=== PATIENT | male | born 1960 | race Caucasian/White ===

== ENCOUNTER 2018-08-26 20:44 | Inpatient (IN) | payer OTHER ==
[~2018-08-26] VITALS: Ht 170.2 cm; Wt 68.0 kg
[2018-08-26 20:45] VITALS: BP 90/51
--- NOTE | 2018-08-26 20:45 | NUR ---
PT BIBA TO ER WITH C/O GENERALIZED WEAKNESS. [facility] PT STATED HE WAS AT A LIBERTARIAN SITTING DOWN AND FELT LIGHT HEADED. FAMILY STATED PER [facility] THAT PT WAS COUGHING UP BLOOD X 3. PT HAS BLOOD ON SHIRT AND PANTS. PT DOES NOT REMEMBER VOMITING UP BLOOD. PT DENIES NAUSEA AT THIS TIME. PT IS SHAKING DUE TO HX OF TREMORS, PALE/GREYISH TONE SKIN, ABDOMEN DISTENDED. PER [facility], FAMILY STATED HE HAS HX OF ASCITES. PT HAD A PARACENTESIS APPROX. ONE MONTH AGO. PT IS A/OX4. PT KNOWS WHERE IS HE IS AND HAS KNOWLEDGE OF DATE AND TIME. PT IS PERSIAN SPEAKING, BUT UNDERSTANDS SOME LUX[place]BOURGISH. PER [facility], FAMILY STATED HE HAS BEEN HAVING LOW BP. PRIOR TO ER, 74/46. [facility] STARTED IV RIGHT AC 28 GAUGE AND GAVE 500 ML BOLUS OF NS. PT HAD BANDING DONE TO HIS ESOPHOGEAL VARICES IN JUNE. ER MD MADE AWARE OF STATUS. SAFETY MEASURES UN PLACE, BED RAILS UP X 2. CONTINUE TO MONITOR. PT STATED NO PAIN AT THIS TIME ALLERGIES TO PENICILLIN BLOOD SUAR WAS TAKEN AND WAS 210. MEDICAL HX: HTN, ESOPHAGEAL VARICES, SURGERY AND BANDED, DM, ASCITES, CIRRHOSIS OF LIVER, STOPPED DRINKING ALCOHOL X 2 MONTHS AGO.
--- NOTE | 2018-08-26 20:47 | NUR ---
DR. JOHNSON EVALUATING PT BEDSIDE
--- NOTE | 2018-08-26 20:50 | NUR ---
AT PT BEDSIDE.
[2018-08-26] MEDS ORDERED: GLIP10TA3 PO (20:56)
[2018-08-26] MEDS ORDERED: ASPI-1718 PO (20:56)
[2018-08-26] MEDS ORDERED: FURO-570 PO (20:56)
[2018-08-26] MEDS ORDERED: METF1000 PO (20:56)
--- NOTE | 2018-08-26 20:57 | NUR ---
PT PATIENT'S , PT TAKING AMLODIPINE, UNKNOWN DOSE. PT WAS INSTRUCTED BY PMD TO DISCONTINUE USE OF MEDICATION AND HAS NOT BEEN TAKING IT FOR THE PAST TWO WEEKS PER FAMILY.
[2018-08-26] MEDS ORDERED: NACL 0.9% 1,000 ML IV SCH (21:01)
[2018-08-26] MEDS ORDERED: OCTREOTIDE ACETATE 1.25 MG in NACL 0.9% 250 ML IV SCH (21:05)
[2018-08-26 21:19] LABS: BASOPHILS % (AUTO) 0.6 % (0.0-2.0); EOSINOPHILS # (AUTO) 0.1 K/uL (0-0.4); EOSINOPHILS % (AUTO) 1.6 % (0.0-4.0); LYMPHOCYTES # (AUTO) 1.8 K/uL (2.0-11.5); LYMPHOCYTES % (AUTO) 25.7 % (20.5-51.1); MEAN CORPUSCULAR HEMOGLOBIN 33 pg (27-31); MEAN CORPUSCULAR HGB CONC 34 g/dL (33-37); MEAN CORPUSCULAR VOLUME 96.9 fL (80-94); MONOCYTES # (AUTO) 0.5 K/uL (0.8-1.0); MONOCYTES % (AUTO) 7.3 % (1.7-9.3); NEUTROPHILS # (AUTO) 4.5 K/uL (1.8-7.7); NEUTROPHILS % (AUTO) 64.8 % (42.2-75.2); PLATELET COUNT (AUTO) 82 K/uL (140-450); RED BLOOD CELL COUNT(AUTO) 2.04 MIL/uL (4.20-6.10); RED CELL DISTRIBUTION WIDTH 16.8 % (11.6-13.7); WHITE BLOOD COUNT (AUTO) 6.9 K/uL (4.8-10.8)
[2018-08-26 21:23] LABS: HEMOGLOBIN 6.8 g/dL (12.0-18.0)
[2018-08-26 21:24] LABS: HEMATOCRIT 19.8 % (36-52)
[2018-08-26] MEDS ORDERED: OCTREOTIDE ACETATE 1000 MCG/5 ML VIAL ONE (21:25)
[2018-08-26 21:29] LABS: CARBON DIOXIDE 20.8 mmol/L (21-32); POTASSIUM 3.8 mmol/L (3.5-5.1)
[2018-08-26 21:35] LABS: ALBUMIN 2.2 g/dL (3.4-5.0); TOTAL BILIRUBIN 1.2 mg/dL (0.0-1.0)
--- NOTE | 2018-08-26 21:35 | NUR ---
LAB CALLED AND GAVE REPORT ON CRITICAL LAB FINDING. HH IS 6.8 AND HEMATOCRIT IS 19.8. NAHUN LEYVA MADE AWARE
[2018-08-26] MEDS ORDERED: ASCO500T45 GT (21:51)
[2018-08-26] MEDS ORDERED: HYDR100T79 GT (21:54)
[2018-08-26] MEDS ORDERED: OXYC5TAB4 GT (21:54)
[2018-08-26] MEDS ORDERED: ACET-8386 GT (21:54)
[2018-08-26] MEDS ORDERED: ONDA4TAB GT (21:54)
[2018-08-26] MEDS ORDERED: ACET-2619 GT (21:54)
--- NOTE | 2018-08-26 22:05 | NUR ---
BLOOD BANK CALLED AND STATED THE BLOOD IS READY. NAHUN LEYVA MADE AWARE
--- NOTE | 2018-08-26 22:05 | NUR ---
PT UNDERSTOOD AND SIGNED THE CONSENT FORM TO RECIEVE BLOOD. ER MADE AWARE. AT BEDSIDE.
[2018-08-26] MEDS ORDERED: ONDANSETRON 4 MG/2 ML VIAL IVP ONE (22:25)
--- NOTE | 2018-08-26 22:25 | NUR ---
PT WAS FEELING NAUSEOUS, ER MD MADE AWARE AND STATED WILL ORDER MEDICATION.
[2018-08-26 22:40] VITALS: BP 90/52
--- NOTE | 2018-08-26 22:40 | NUR ---
PT ARRIVED VIA GURNEY TO UNIT. WITH LITTLE ASSISTANCE PT WAS ABLE TO HELP TRANSFER TO BED. AOX4- WELSH SPEAKING, ON ROOM AIR WITH IV SITES: LEFT AC #20G, RIGHT AC #18G. DISCUSSED PLAN OF CARE AND PT VERBALIZED UNDERSTANDING. NO S/S OF RESPIRATORY DISTRESS OR DISCOMFORT NOTED AT THIS TIME. VITAL SIGNS TAKEN AND TOLERATED WELL- LOW BP NOTED. MRSA NARES COLLECTED. BED IN LOWEST POSITION, BED BREAKS ON, AND BOTH SIDE RAILS UP. BEDSIDE TABLE AND CALL LIGHT ARE WITHIN REACH. WILL CONTINUE TO MONITOR.
[2018-08-26 22:56] LABS: APPEARANCE,URINE CLEAR (CLEAR); BILIRUBIN,URINE NEGATIVE (NEGATIVE); BLOOD, URINE NEGATIVE (NEGATIVE); COLOR,URINE YELLOW (YELLOW); LEUKOCYTE ESTERASE ,URINE NEGATIVE (NEGATIVE); NITRITE, URINE NEGATIVE (NEGATIVE); UGLUCOSE TRACE (NEGATIVE)
--- NOTE | 2018-08-26 23:08 | NUR ---
PT WAS ADMITTED TO [facility], ADMITTING DR. IBARRA. REPORT WAS GIVEN TO KEREN MARQUEZ. PT WAS [place]SFERRED [place] WITH RN AND EMT. PT TOLERATED WELL. PT WAS STILL FEELING NAUSEOUS, AND THAT BLOOD WAS READY FOR ASSEMBLY HAND , ENDORSED TO ALMA VELIZ. VITAL SIGNS STABLE. AT BEDSIDE.
[2018-08-26 23:11] LABS: HYALINE CASTS, URINE 0-10 /LPF (None Seen); RBC,URINE 0-5 /HPF (0-5); WBC,URINE 0-5 /HPF (0-5)
[2018-08-26] MEDS ORDERED: ACETAMINOPHEN 325 MG TAB PO PRN (23:30)
[2018-08-26] MEDS ORDERED: ONDANSETRON 4 MG/2 ML VIAL IVP PRN (23:30)
--- NOTE | 2018-08-27 | NUR ---
SPOKE WITH DR. HERNADEZ AND WAS GIVEN ORDERS FOR ZOFRAN, TYLENOL, PROTONIX DRIP AND 2 UNITS OF RBC TO BE INFUSED ALONG WITH NPO EXCEPT MEDS. IV FLUIDS TO BE D5% NS @65ML/HR. NO S/S OF RESPIRATORY DISTRESS OR DISCOMFORT NOTED AT THIS TIME. WILL CONTINUE TO MONITOR.
[2018-08-27] MEDS ORDERED: PANTOPRAZOLE 40 MG INJ VIAL ONE (00:15)
[2018-08-27] MEDS: PANTOPRAZOLE 80 MG in NACL 0.9% 100 ML IV SCH ×2 (00:30→10:10)
--- NOTE | 2018-08-27 00:30 | NUR ---
PROTONIX DRIP STARTED. PT TOLERATED WELL. NO S/S OF RESPIRATORY DISTRESS OR DISCOMFORT NOTED AT THIS TIME. WILL CONTINUE TO MONITOR.
--- NOTE | 2018-08-27 01:00 | NUR ---
FIRST BAG OF RBC HAS STARTED TO INFUSE. PT TOLERATING WELL. NO S/S OF RESPIRATORY DISTRESS OR DISCOMFORT NOTED AT THIS TIME. WILL CONTINUE TO MONITOR.
--- NOTE | 2018-08-27 03:00 | NUR ---
RBC'S CONTINUE TO INFUSE. PT TOLERATING WELL. NO S/S OF RESPIRATORY DISTRESS OR DISCOMFORT NOTED AT THIS TIME. WILL CONTINUE TO MONITOR.
--- NOTE | 2018-08-27 03:45 | NUR ---
FIRST BAG OF RBC HAS COMPLETED. PT TOLERATED WELL. NO S/S OF RESPIRATORY DISTRESS OR DISCOMFORT NOTED AT THIS TIME. WILL CONTINUE TO MONITOR.
--- NOTE | 2018-08-27 04:37 | NUR ---
SECOND BAG OF RBC STARTED TO INFUSE. PT TOLERATING WELL. NO S/S OF RESPIRATORY DISTRESS OR DISCOMFORT NOTED AT THIS TIME. WILL CONTINUE TO MONITOR.
--- NOTE | 2018-08-27 06:00 | NUR ---
BLOOD GLUCOSE 226- WILL ADMINISTER INSULIN COVERAGE. NO S/S OF RESPIRATORY DISTRESS OR DISCOMFORT NOTED AT THIS TIME. WILL CONTINUE TO MONITOR.
[2018-08-27] MEDS ORDERED: DEXTROSE 50% 50 ML SYR IVP PRN ×2 (06:05→09:40)
[2018-08-27] MEDS: BLOOD GLUCOSE MONITORING 1 DEV DEV FS SCH ×4 (06:41→20:11)
[2018-08-27] MEDS: INSULIN LISPRO SLIDING SCALE 100 UNITS/ML VIAL SUBQ PRN ×4 (06:45→20:27)
--- NOTE | 2018-08-27 06:45 | NUR ---
INSULIN COVERAGE GIVEN AND TOLERATED WELL. NO S/S OF RESPIRATORY DISTRESS OR DISCOMFORT NOTED AT THIS TIME. WILL CONTINUE TO MONITOR.
--- NOTE | 2018-08-27 07:20 | NUR ---
SECOND BAG OF RBC'S HAS COMPLETED. PT TOLERATED WELL. NO S/S OF RESPIRATORY DISTRESS OR DISCOMFORT NOTED AT THIS TIME. WILL CONTINUE TO MONITOR.
--- NOTE | 2018-08-27 07:29 | NUR ---
ENDORSED PT CARE TO DAY SHIFT NURSE LASHON-RN FOR CONTINUITY OF CARE.
--- NOTE | 2018-08-27 07:30 | NUR ---
REPORT RECEIVED FROM EXPLOSIVE MAN NURSE AT BEDSIDE FOR CONTINUITY OF CARE. PATIENT AWAKE AND ALERT, MONGOLIAN SPEAKING ONLY. PER PM SHIFT RN, 2ND BAG OF BLOOD FINISHED AT 0720, STENCILER ALFREDA PUT IN NEW LAB ORDERS. PATIENT DENIES PAIN OR VOMITING. PATIENT HAS INTERMITTENT NON PRODUCTIVE COUGH. RESPIRATIONS EVEN AND UNLABORED ON ROOM AIR, LUNGS CLEAR. PATIENT HAS 3 IV SITES, LAC 20G, PATENT, INTACT, AND ASYMPTOMATIC, SALINE LOCKED. RAC 18G PATENT, INFUSING SANDOSTATIN WELL. LH 22G PATENT, INFUSING PROTONIX WELL. UPDATED PLAN OF CARE WITH PATIENT, HE VERBALIZED UNDERSTANDING. UPDATED BOARD. SAFETY PRECAUTIONS IN PLACE, CALL LIGHT WITHIN REACH, WILL CONTINUE TO MONITOR PATIENT.
[2018-08-27] MEDS: DEXT 5% /NACL 0.9% 1,000 ML IV SCH ×2 (07:45→15:29)
[2018-08-27 08:00] VITALS: BP 98/69
--- NOTE | 2018-08-27 08:30 | NUR ---
PATIENT VOMITED 100 CC OF DARK BLOOD. ZOFRAN IVP PRN GIVEN TO PATIENT. HE TOLERATED IT. NO COMPLAINTS AT THIS TIME. SAFETY PRECAUTIONS IN PLACE, CALL LIGHT WITHIN REACH, WILL CONTINUE TO MONITOR PATIENT.
--- NOTE | 2018-08-27 09:21 | NUR ---
PATIENT VOMITED 100 CC OF DARK BLOOD. AT BEDSIDE. UPDATED PLAN OF CARE TO HER AND PATIENT'S STATUS, SHE VERBALIZED UNDERSTANDING. PAGED DR. IBARRA. DR. NORMAN CASH SHORTAGE INVESTIGATOR. WILL WAIT FOR HIS CALL BACK.
[2018-08-27] MEDS ORDERED: METOCLOPRAMIDE 10 MG/2 ML INJ VIAL IVP PRN (09:40)
[2018-08-27] MEDS ORDERED: INSULIN LISPRO SLIDING SCALE 100 UNITS/ML VIAL SUBQ PRN (09:40)
--- NOTE | 2018-08-27 09:42 | NUR ---
DR IBARRA IN TO SEE THE PATIENT. AT BEDSIDE. WILL WAIT FOR HIS ORDERS.
[2018-08-27 09:46] LABS: BASOPHILS % (AUTO) 0.3 % (0.0-2.0); EOSINOPHILS % (AUTO) 0.3 % (0.0-4.0); HEMATOCRIT 26.2 % (36-52); HEMOGLOBIN 9.2 g/dL (12.0-18.0); LYMPHOCYTES # (AUTO) 1.2 K/uL (2.0-11.5); MEAN CORPUSCULAR HEMOGLOBIN 33 pg (27-31); MEAN CORPUSCULAR HGB CONC 35 g/dL (33-37); MEAN CORPUSCULAR VOLUME 92.5 fL (80-94); MONOCYTES # (AUTO) 0.7 K/uL (0.8-1.0); MONOCYTES % (AUTO) 8.1 % (1.7-9.3); NEUTROPHILS # (AUTO) 7.1 K/uL (1.8-7.7); NEUTROPHILS % (AUTO) 78.3 % (42.2-75.2); PLATELET COUNT (AUTO) 78 K/uL (140-450); RED BLOOD CELL COUNT(AUTO) 2.83 MIL/uL (4.20-6.10); RED CELL DISTRIBUTION WIDTH 16.7 % (11.6-13.7); WHITE BLOOD COUNT (AUTO) 9.1 K/uL (4.8-10.8)
[2018-08-27 10:02] LABS: PROTHROMBIN TIME 12.7 secs (10.8-13.4)
--- NOTE | 2018-08-27 10:20 | NUR ---
CALLED BLOOD BANK ABOUT DR. IBARRA'S ORDER OF PLATELETS. THEY STATED THAT IT WILL BE COMING FROM [facility], WILL TAKE 2-3 HOURS TO ARRIVE AT HOSPITAL. TURN SUPERVISOR AWARE, FAMILY AT BEDSIDE AWARE. WILL CONTINUE TO MONITOR PATIENT.
--- NOTE | 2018-08-27 10:55 | NUR ---
ORDERED SCDS PLACED ON PATIENT AFTER EDUCATION ABOUT INDICATION TO FAMILY AND PATIENT. THEY VERBALIZED UNDERSTANDING. PATIENT NOW RESTING IN BED, NO COMPLAINTS AT THIS TIME, PATIENT DENIES PAIN. NO VOMITING AT THIS TIME. WILL CONTINUE TO MONITOR PATIENT.
[2018-08-27] MEDS ORDERED: BLOOD GLUCOSE MONITORING 1 DEV DEV FS SCH (11:30)
--- NOTE | 2018-08-27 12:15 | NUR ---
BLOOD SUGAR 200, INSULIN COVERAGE GIVEN. PATIENT TOLERATING IT WELL. FAMILY AT BEDSIDE. NO COMPLAINTS AT THIS TIME, PATIENT DENIES PAIN. PATIENT DOES NOT FEEL NAUSEAS, PATIENT COUGHING INTERMITTENTLY. SAFETY PRECAUTIONS IN PLACE, CALL LIGHT WITHIN REACH, WILL CONTINUE TO MONITOR PATIENT.
--- NOTE | 2018-08-27 13:15 | NUR ---
1 UNIT OF PLATELETS STARTED. VS WNL. PATIENT DENIES PAIN, NAUSEA AT THE MOMENT. WILL CONTINUE TO MONITOR PATIENT. Addendum: 08/27/18 at 1857 by Morgan Douglas RN INCORRECT TIME. CORRECT TIME 1345.
[2018-08-27] MEDS ORDERED: OCTREOTIDE ACETATE 1.25 MG in NACL 0.9% 250 ML IV SCH (14:05)
--- NOTE | 2018-08-27 15:15 | NUR ---
2ND UNIT OF PLATELETS STARTED. VS WNL. PATIENT DENIES PAIN, NAUSEA AT THE MOMENT. WILL CONTINUE TO MONITOR PATIENT.
[2018-08-27 16:00] VITALS: BP 106/67
--- NOTE | 2018-08-27 16:15 | NUR ---
DR PEREZ IN TO SEE THE PATIENT. WILL WAIT FOR NEW ORDERS.
--- NOTE | 2018-08-27 17:41 | NUR ---
BLOOD SUGAR 182, INSULIN COVERAGE GIVEN. PATIENT TOLERATED IT. PATIENT FINISHED WITH ABD US, WILL WAIT FOR RESULTS. FULL LIQUID DINNER PRESENT. PATIENT SITTING UP IN BED EATING DINNER SLOWLY. NO COMPLAINTS AT THIS TIME, NO NAUSEA, PAIN. WILL CONTINUE TO MONITOR PATIENT.
[2018-08-27] MEDS ORDERED: PHYTONADIONE 10 MG/ML AMP SUBQ SCH (18:00)
--- NOTE | 2018-08-27 19:23 | NUR ---
REPORT GIVEN AT BEDSIDE TO CIVIL ENGINEERING DRAFTSPERSON NURSE FOR CONTINUITY OF CARE. PATIENT IN STABLE CONDITION.
--- NOTE | 2018-08-27 19:24 | NUR ---
RECEIVED REPORT FROM DAY SHIFT NURSE LASHON-RN AT BEDSIDE. PT AOX4- UKRAINIAN SPEAKING, ON ROOM AIR WITH IV SITES: LEFT AC #20G, RIGHT AC #18G; LEFT HAND 24G. DISCUSSED PLAN OF CARE AND PT VERBALIZED UNDERSTANDING. NO S/S OF RESPIRATORY DISTRESS OR DISCOMFORT NOTED AT THIS TIME. BED IN LOWEST POSITION, BED BREAKS ON, AND BOTH SIDE RAILS UP. BEDSIDE TABLE AND CALL LIGHT ARE WITHIN REACH. WILL CONTINUE TO MONITOR.
[2018-08-27 20:00] VITALS: BP 119/76
--- NOTE | 2018-08-27 20:00 | NUR ---
VITAL SIGNS TAKEN AND TOLERATED WELL. BLOOD GLUCOSE 253- WILL ADMINISTER INSULIN COVERAGE. NO S/S OF RESPIRATORY DISTRESS OR DISCOMFORT NOTED AT THIS TIME. WILL CONTINUE TO MONITOR.
[2018-08-27] MEDS: PANTOPRAZOLE 40 MG INJ VIAL IVP SCH (20:11)
[2018-08-27] MEDS: LACTULOSE 20 GM/30 ML UDC PO SCH (20:12)
[2018-08-27] MEDS: SENNA 8.6 MG TAB PO SCH (20:12)
--- NOTE | 2018-08-27 20:12 | NUR ---
SCHEDULED MEDICATION GIVEN AND TOLERATED WELL. NO S/S OF RESPIRATORY DISTRESS OR DISCOMFORT NOTED AT THIS TIME. WILL CONTINUE TO MONITOR.
--- NOTE | 2018-08-27 20:27 | NUR ---
INSULIN COVERAGE GIVEN AND TOLERATED WELL. NO S/S OF RESPIRATORY DISTRESS OR DISCOMFORT NOTED AT THIS TIME. WILL CONTINUE TO MONITOR.
--- NOTE | 2018-08-27 22:00 | NUR ---
PT RESTING IN BED. NO S/S OF RESPIRATORY DISTRESS OR DISCOMFORT NOTED AT THIS TIME. WILL CONTINUE TO MONITOR.
[2018-08-28] VITALS: BP 117/72
--- NOTE | 2018-08-28 | NUR ---
VITAL SIGNS TAKEN AND TOLERATED WELL. NO S/S OF RESPIRATORY DISTRESS OR DISCOMFORT NOTED AT THIS TIME. WILL CONTINUE TO MONITOR.
--- NOTE | 2018-08-28 02:00 | NUR ---
PT SLEEPING IN BED. NO S/S OF RESPIRATORY DISTRESS OR DISCOMFORT NOTED AT THIS TIME. WILL CONTINUE TO MONITOR.
--- NOTE | 2018-08-28 04:00 | NUR ---
PT RESTING IN BED. ASSISTED WITH PERINEAL CARE AFTER INCONTINENT OF STOOL AND URINE. PT TOLERATED WELL. NO S/S OF RESPIRATORY DISTRESS OR DISCOMFORT NOTED AT THIS TIME. WILL CONTINUE TO MONITOR.
--- NOTE | 2018-08-28 05:43 | NUR ---
PATIENT HAS BEEN SCREENED AND CATEGORIZED MODERATE NUTRITION RISK. PATIENT WILL BE SEEN WITHIN 3-5 DAYS OF ADMISSION. 08/29/18-08/31/18 TRACE ABDUL MS, RDN
[2018-08-28] MEDS: BLOOD GLUCOSE MONITORING 1 DEV DEV FS SCH ×4 (06:13→21:52)
--- NOTE | 2018-08-28 06:13 | NUR ---
BLOOD GLUCOSE 207- WILL ADMINISTER INSULIN COVERAGE. NO S/S OF RESPIRATORY DISTRESS OR DISCOMFORT NOTED AT THIS TIME. WILL CONTINUE TO MONITOR.
[2018-08-28] MEDS: INSULIN LISPRO SLIDING SCALE 100 UNITS/ML VIAL SUBQ PRN ×3 (06:31→16:58)
--- NOTE | 2018-08-28 06:31 | NUR ---
INSULIN COVERAGE GIVEN AND TOLERATED WELL. NO S/S OF RESPIRATORY DISTRESS OR DISCOMFORT NOTED AT THIS TIME. WILL CONTINUE TO MONITOR.
[2018-08-28] MEDS: DEXT 5% /NACL 0.9% 1,000 ML IV SCH ×2 (06:35→19:15)
--- NOTE | 2018-08-28 07:14 | NUR ---
ENDORSED PT CARE TO DAY SHIFT NURSE LASHON-RN FOR CONTINUITY OF CARE.
--- NOTE | 2018-08-28 07:15 | NUR ---
REPORT RECEIVED FROM ANESTHESIOLOGY PHYSICIAN ASSISTANT NURSE AT BEDSIDE FOR CONTINUITY OF CARE. PATIENT ASLEEP BUT AROUSABLE, ALBANIAN SPEAKING ONLY. PATIENT DENIES PAIN OR VOMITING. RESPIRATIONS EVEN AND UNLABORED ON ROOM AIR. PATIENT HAS 3 IV SITES, LAC 20G, PATENT, INTACT, AND ASYMPTOMATIC, INFUSING IVF WELL. RAC 18G PATENT, INFUSING SANDOSTATIN WELL. LH 22G PATENT, SALINE LOCKED. UPDATED PLAN OF CARE WITH PATIENT ABOUT EGD WITH DR. PEREZ, HE VERBALIZED UNDERSTANDING. UPDATED BOARD. SAFETY PRECAUTIONS IN PLACE, CALL LIGHT WITHIN REACH, WILL CONTINUE TO MONITOR PATIENT.
[2018-08-28] MEDS: fentaNYL 0.05 MG/ML VIAL ONE ×2 (07:47→08:21)
[2018-08-28] MEDS: MIDAZOLAM 2 MG/2 ML VIAL ONE ×2 (07:47→08:21)
[2018-08-28 07:51] LABS: ANION GAP 15.3 (8-16); CARBON DIOXIDE 20.4 mmol/L (21-32); POTASSIUM 3.7 mmol/L (3.5-5.1)
[2018-08-28 08:00] VITALS: BP 106/67
[2018-08-28 08:01] LABS: BASOPHILS % (AUTO) 0.7 % (0.0-2.0); EOSINOPHILS # (AUTO) 0.1 K/uL (0-0.4); EOSINOPHILS % (AUTO) 2.1 % (0.0-4.0); HEMATOCRIT 23.3 % (36-52); HEMOGLOBIN 8.2 g/dL (12.0-18.0); LYMPHOCYTES # (AUTO) 0.7 K/uL (2.0-11.5); LYMPHOCYTES % (AUTO) 13.5 % (20.5-51.1); MEAN CORPUSCULAR HEMOGLOBIN 33 pg (27-31); MEAN CORPUSCULAR HGB CONC 35 g/dL (33-37); MEAN CORPUSCULAR VOLUME 92.8 fL (80-94); MONOCYTES # (AUTO) 0.5 K/uL (0.8-1.0); MONOCYTES % (AUTO) 8.9 % (1.7-9.3); NEUTROPHILS # (AUTO) 4.1 K/uL (1.8-7.7); NEUTROPHILS % (AUTO) 74.8 % (42.2-75.2); PLATELET COUNT (AUTO) 106 K/uL (140-450); RED BLOOD CELL COUNT(AUTO) 2.51 MIL/uL (4.20-6.10); RED CELL DISTRIBUTION WIDTH 17.3 % (11.6-13.7); WHITE BLOOD COUNT (AUTO) 5.5 K/uL (4.8-10.8)
[2018-08-28 08:03] LABS: MAGNESIUM 1.5 mg/dL (1.8-2.4); PHOSPHORUS 2.7 mg/dL (2.5-4.9)
[2018-08-28] MEDS ORDERED: MULTIVIT/MIN/CA/FE/FA 1 TAB PO SCH (09:17)
[2018-08-28] MEDS ORDERED: PROPRANOLOL 20 MG TAB PO SCH (09:20)
[2018-08-28] MEDS ORDERED: SODIUM FERRIC GLUCONATE 125 MG in NACL 0.9% 100 ML IV SCH (10:00)
[2018-08-28] MEDS: SENNA 8.6 MG TAB PO SCH ×2 (10:40→21:58)
[2018-08-28] MEDS: LACTULOSE 20 GM/30 ML UDC PO SCH ×2 (10:40→21:58)
[2018-08-28] MEDS: PANTOPRAZOLE 40 MG INJ VIAL IVP SCH ×2 (10:41→21:58)
--- NOTE | 2018-08-28 10:44 | NUR ---
ORDERED MEDICATIONS GIVEN CRUSHED PER DOCTOR'S ORDERS. PATIENT TOLERATED THEM WELL. PATIENT STILL SLEEPY FROM PROCEDURE BUT AROUSABLE. NO COMPLAINTS AT THIS TIME. SAFETY PRECAUTIONS IN PLACE, CALL LIGHT WITHIN REACH, WILL CONTINUE TO MONITOR PATIENT.
[2018-08-28] MEDS ORDERED: MAG SULF 2000 MG/WATER PREMIX 50 ML IV SCH (11:00)
--- NOTE | 2018-08-28 11:30 | NUR ---
ORDERED MAG RIDER GIVEN FOR MAG LEVEL OF 1.5. PATIENT TOLERATED IT. PATIENT NOW RESTING IN BED. NO COMPLAINTS AT THIS TIME, PATIENT DENIES, PAIN, NAUSEA. WILL CONTINUE TO MONITOR PATIENT.
--- NOTE | 2018-08-28 11:50 | NUR ---
BLOOD SUGAR 274, COVERAGE GIVEN. PATIENT TOLERATED IT. PATIENT NOW RESTING IN BED. NO COMPLAINTS AT THIS TIME, PATIENT DENIES, PAIN, NAUSEA. SAFETY PRECAUTIONS IN PLACE, CALL LIGHT WITHIN REACH, WILL CONTINUE TO MONITOR PATIENT.
[2018-08-28] MEDS: PROPRANOLOL 20 MG TAB PO SCH ×2 (13:11→16:49)
--- NOTE | 2018-08-28 13:15 | NUR ---
ORDERED ANTIBIOTICS GIVEN. PATIENT TOLERATING IT. NO S/S OF REACTION NOTED. GUERO AT BEDSIDE. PATIENT LETHARGIC. WILL CONTINUE TO MONITOR PATIENT.
--- NOTE | 2018-08-28 14:30 | NUR ---
PATIENT REQUESTED TO AMBULATE TO BATHROOM. PATIENT AMBULATED WITH ASSIST. PATIENT HAD BROWN, SOFT BM. GUERO AT BEDSIDE. PATIENT DENIES PAIN, NAUSEA. SAFETY PRECAUTIONS IN PLACE, CALL LIGHT WITHIN REACH, WILL CONTINUE TO MONITOR PATIENT.
[2018-08-28 16:00] VITALS: BP 119/18
--- NOTE | 2018-08-28 16:12 | NUR ---
PATIENT RESTING WITH EYES CLOSED, BUT AROUSABLE. VS WNL. WILL CONTINUE TO MONITOR PATIENT.
--- NOTE | 2018-08-28 17:00 | NUR ---
BLOOD SUGAR 174, COVERAGE GIVEN. ORDERED MEDICATION CRUSHED AND GIVEN PER DR. PEREZ'S ORDERS. PATIENT TOLERATED IT. PATIENT HAS NO COMPLAINTS AT THIS TIME. SAFETY PRECAUTIONS IN PLACE, CALL LIGHT WITHIN REACH, WILL CONTINUE TO MONITOR PATIENT.
--- NOTE | 2018-08-28 19:17 | NUR ---
REPORT GIVEN AT BEDSIDE TO HOT BRAIDER NURSE SRIKANTH FOR CONTINUITY OF CARE. PATIENT IN STABLE CONDITION.
--- NOTE | 2018-08-28 21:56 | NUR ---
RECEIVED W/ NO AC LEFT IV SITE. ANCEF INFUSED ON LEFT HAND G 24 IV SITE
--- NOTE | 2018-08-28 22:15 | NUR ---
CALLED DR. NETTLES ENGINEERING INTERN FOR DR. IBARRA. RE: DIET FROM NPO EXCEPT MEDS IF HE HAS A NEW DIET, HE SAID TO WAIT / ASK DR. PEREZ'S ORDER
--- NOTE | 2018-08-29 | NUR ---
PT SLEEPING ON HIS SIDE IN BED, PT COMFORTABLE NO DISTRESS, NO PAIN COMPLAINTS AT THIS TIME. NO S/ SX'S OF BLEEDING
--- NOTE | 2018-08-29 04:32 | NUR ---
ENDORSED REPORT TO PM SHIFT NURSE, SUMMER. PT ASLEEP, IN BED. NO PAIN AT THIS TIME, NO S/SX'S OF BLEEDING NOTED.
--- NOTE | 2018-08-29 04:33 | NUR ---
RECEIVED REPORT FROM ALMA DUKE FOR CONTINUITY OF CARE. PATIENT ASLEEP IN BED. BED ALARM ON.
[2018-08-29] MEDS: BLOOD GLUCOSE MONITORING 1 DEV DEV FS SCH ×4 (05:13→21:00)
[2018-08-29] MEDS: INSULIN LISPRO SLIDING SCALE 100 UNITS/ML VIAL SUBQ PRN ×3 (05:17→22:13)
--- NOTE | 2018-08-29 05:17 | NUR ---
GAVE 4 UNITS INSULIN FOR BLOOD GLUCOSE 206
--- NOTE | 2018-08-29 07:24 | NUR ---
RECEIVED REPORT FROM TIGHT COOPER NURSE FOR CONTINUITY OF CARE. PT IN STABLE CONDITION. RESPIRATIONS EVEN AND UNLABORED. IV INTACT AND PATENT. SAFETY MEASURES IN PLACE. CALL LIGHT AT BEDSIDE. BED IN LOW POSITION.
--- NOTE | 2018-08-29 07:24 | NUR ---
ENDORSED PATIENT TO DAY SHIFT NURSE FOR CONTINUITY OF CARE. PATIENT STABLE.
[2018-08-29 07:37] LABS: BASOPHILS # (AUTO) 0.1 K/uL (0.00-0.22); BASOPHILS % (AUTO) 1.1 % (0.0-2.0); EOSINOPHILS # (AUTO) 0.2 K/uL (0-0.4); EOSINOPHILS % (AUTO) 4.5 % (0.0-4.0); HEMOGLOBIN 8.7 g/dL (12.0-18.0); LYMPHOCYTES # (AUTO) 1.1 K/uL (2.0-11.5); LYMPHOCYTES % (AUTO) 21.8 % (20.5-51.1); MEAN CORPUSCULAR HEMOGLOBIN 33 pg (27-31); MEAN CORPUSCULAR HGB CONC 35 g/dL (33-37); MONOCYTES # (AUTO) 0.5 K/uL (0.8-1.0); MONOCYTES % (AUTO) 10.1 % (1.7-9.3); NEUTROPHILS # (AUTO) 3.3 K/uL (1.8-7.7); NEUTROPHILS % (AUTO) 62.5 % (42.2-75.2); PLATELET COUNT (AUTO) 102 K/uL (140-450); RED BLOOD CELL COUNT(AUTO) 2.67 MIL/uL (4.20-6.10); WHITE BLOOD COUNT (AUTO) 5.2 K/uL (4.8-10.8)
[2018-08-29 07:51] LABS: MAGNESIUM 1.5 mg/dL (1.8-2.4); PHOSPHORUS 2.9 mg/dL (2.5-4.9)
[2018-08-29] MEDS: MULTIVIT/MIN/CA/FE/FA 1 TAB PO SCH (09:00)
--- NOTE | 2018-08-29 09:00 | NUR ---
MEDICATIONS NOT GIVEN DUE TO NPO
--- NOTE | 2018-08-29 10:30 | NUR ---
SHIRIN PIERSON DR. DISCONTINUE OCTREOTIDE ACETATE.
[2018-08-29 11:06] LABS: ANION GAP 11.9 (8-16); CARBON DIOXIDE 24.5 mmol/L (21-32); CREATININE 0.8 mg/dL (0.7-1.3); POTASSIUM 3.4 mmol/L (3.5-5.1)
--- NOTE | 2018-08-29 12:50 | NUR ---
PT LYING IN BED IN STABLE CONDITION. FAMILY AT BEDSIDE. WILL CONTINUE TO MONITOR. CALL LIGHT AT BEDSIDE. BED IN LOW POSITION.
[2018-08-29] MEDS: PROPRANOLOL 20 MG TAB PO SCH ×2 (13:35→18:03)
[2018-08-29] MEDS: LACTULOSE 20 GM/30 ML UDC PO SCH ×2 (13:35→18:04)
--- NOTE | 2018-08-29 15:33 | NUR ---
PT LYING IN BED IN STABLE CONDITION. RESPIRATIONS EVEN AND UNLABORED. WILL CONTINUE TO MONITOR. CALL LIGHT AT BEDSIDE. BED IN LOW POSITION.
--- NOTE | 2018-08-29 16:08 | NUR ---
CALLED PATIENT'S PCP [facility] OFFICE [phone] , SPOKE WITH ROGER , PT HAS ALREADY APPOINTMENT SEPTEMBER 22 AT 2 PM AND WILL KEEP THE APPOINTMENT WITH DR DONIS , EXPLAIN TO THE PATIENT AND PT VERBALIZED UNDERSTANDING.
--- NOTE | 2018-08-29 19:30 | NUR ---
GAVE REPORT TO VMWARE ADMINISTRATOR NURSE FOR CONTINUITY OF CARE. PT IN STABLE CONDITION.
--- NOTE | 2018-08-29 19:31 | NUR ---
RECEIVED REPORT FROM DAY SHIFT NURSE. NO C/O PAIN, NAUSEA/VOMITING. NO SOB NOTED. ON ROOM AIR. SKIN INTACT. IV TO RIGHT AC AND LEFT HAND #24G, PATENT AND INTACT. FAMILY AT BEDSIDE. CALL LIGHT WITHIN REACH.
[2018-08-29 20:00] VITALS: BP 96/61
[2018-08-29] MEDS: CLARITHROMYCIN 500 MG TAB PO SCH (22:13)
[2018-08-29] MEDS: PANTOPRAZOLE 40 MG TABEC PO SCH (22:14)
--- NOTE | 2018-08-29 22:15 | NUR ---
DUE MEDS GIVEN, PT TOLERATED WELL. NO C/O NAUSEA OR VOMITING.
[2018-08-30] VITALS: BP 97/63
--- NOTE | 2018-08-30 00:30 | NUR ---
PT SLEEPING BUT EASILY AROUSABLE. NO S/S OF PAIN. RESP EVEN AND UNLABORED. SAFETY PRECAUTION IN PLACE. CALL LIGHT WITHIN REACH.
--- NOTE | 2018-08-30 03:25 | NUR ---
PT SLEEPING. NO S/S OF RESP DISTRESS. NO S/S OF PAIN OR DISCOMFORT.
--- NOTE | 2018-08-30 04:30 | NUR ---
ASSISTED PT TO BATHROOM AND BACK TO BED. ALL NEEDS ATTENDED AT THIS TIME. CALL LIGHT WITHIN REACH.
[2018-08-30] MEDS: INSULIN LISPRO SLIDING SCALE 100 UNITS/ML VIAL SUBQ PRN (06:04)
[2018-08-30 06:11] LABS: BASOPHILS % (AUTO) 0.5 % (0.0-2.0); EOSINOPHILS # (AUTO) 0.2 K/uL (0-0.4); EOSINOPHILS % (AUTO) 3.6 % (0.0-4.0); HEMATOCRIT 22.8 % (36-52); LYMPHOCYTES # (AUTO) 1.5 K/uL (2.0-11.5); LYMPHOCYTES % (AUTO) 27.4 % (20.5-51.1); MEAN CORPUSCULAR HEMOGLOBIN 33 pg (27-31); MEAN CORPUSCULAR HGB CONC 35 g/dL (33-37); MONOCYTES # (AUTO) 0.5 K/uL (0.8-1.0); NEUTROPHILS # (AUTO) 3.3 K/uL (1.8-7.7); NEUTROPHILS % (AUTO) 59.5 % (42.2-75.2); PLATELET COUNT (AUTO) 88 K/uL (140-450); RED BLOOD CELL COUNT(AUTO) 2.43 MIL/uL (4.20-6.10); RED CELL DISTRIBUTION WIDTH 17.2 % (11.6-13.7); WHITE BLOOD COUNT (AUTO) 5.5 K/uL (4.8-10.8)
--- NOTE | 2018-08-30 06:20 | NUR ---
BLOOD SUGAR CHECKED 180.HUMALOG 2 UNITS SUBQ GIVEN. PT TOLERATED WELL.
[2018-08-30] MEDS: BLOOD GLUCOSE MONITORING 1 DEV DEV FS SCH ×2 (06:29→11:30)
[2018-08-30 06:36] LABS: ANION GAP 14.8 (8-16); CARBON DIOXIDE 20.6 mmol/L (21-32); CREATININE 0.9 mg/dL (0.7-1.3); POTASSIUM 3.4 mmol/L (3.5-5.1)
[2018-08-30 06:48] LABS: MAGNESIUM 1.3 mg/dL (1.8-2.4); PHOSPHORUS 3.8 mg/dL (2.5-4.9)
--- NOTE | 2018-08-30 07:20 | NUR ---
ENDORSED PT TO DAY SHIFT NURSE. PT IN STABLE CONDITION.
--- NOTE | 2018-08-30 07:22 | NUR ---
RECEIVED BEDSIDE REPORT FROM PARTNER MANAGEMENT CONSULTANT NURSE FOR CONTINUITY OF CARE. PATIENT IS RESTING ON BED AT THIS TIME. PATIENT IS AOX4. DENIES PAIN AND SOB. RESPIRATION EVEN AND UNLABORED. ON RA. NO SIGNS OF DISTRESS NOTED. IV ON LAC 24G AND R HAND 24G, INTACT AND CLEAN, SL. SKIN INTACT AND CLEAN. PATIENT IS ABLE TO AMBULATE WITH STANDBY ASSIST. SEQUENTIAL COMPRESSION SOCKS IN PLACE. INSTRUCTED PATIENT TO USE THE CALL LIGHT FOR ANY ASSISTANCE AND PATIENT WAS AWARE. BED IN LOW POSITION AND CALL LIGHT WITHIN REACH.
[2018-08-30] MEDS: CLARITHROMYCIN 500 MG TAB PO SCH (10:31)
[2018-08-30] MEDS: MULTIVIT/MIN/CA/FE/FA 1 TAB PO SCH (10:31)
[2018-08-30] MEDS: LACTULOSE 20 GM/30 ML UDC PO SCH ×2 (10:31→13:29)
[2018-08-30] MEDS: PANTOPRAZOLE 40 MG TABEC PO SCH (10:31)
[2018-08-30] MEDS: PROPRANOLOL 20 MG TAB PO SCH ×2 (10:32→13:29)
--- NOTE | 2018-08-30 10:34 | NUR ---
ADMINISTERED MEDS PER MD ORDER, PATIENT TOLERATED WELL. PATIENT IS RESTING AND WATCHING TV ON BED AT THIS TIME. DENIES PAIN AND SOB. NO SIGNS OF DISTRESS NOTED. SEQUENTIAL COMPRESSION SOCKS IN PLACE. BED IN LOW POSITION AND CALL LIGHT WITHIN REACH. INSTRUCTED PATIENT TO USE THE CALL LIGHT FOR ANY ASSISTANCE AND PATIENT WAS AWARE.
--- NOTE | 2018-08-30 10:55 | NUR ---
DR PEREZ IS AT BEDSIDE AND TALKING TO PATIENT. NO SIGNS OF DISTRESS NOTED. SAFETY MEASURES IN PLACE.
--- NOTE | 2018-08-30 11:35 | NUR ---
PATIENT IS RESTING ON BED AT THIS TIME. NO SIGNS OF DISTRESS NOTED. SAFETY MEASURES IN PLACE. BED IN LOW POSITION AND CALL LIGHT WITHIN REACH.
--- NOTE | 2018-08-30 12:20 | NUR ---
DR IBARRA IS AT BEDSIDE AND TALKING TO PATIENT. NO SIGNS OF DISTRESS NOTED. SAFETY MEASURES IN PLACE.
[2018-08-30] MEDS ORDERED: PANT40EC28 PO (12:33)
[2018-08-30] MEDS ORDERED: PROP20TA29 PO (12:33)
[2018-08-30] MEDS ORDERED: SPIR50TA PO (12:33)
[2018-08-30] MEDS ORDERED: CLAR500T PO (12:33)
[2018-08-30] MEDS ORDERED: LACT10SO11 PO (12:33)
[2018-08-30] MEDS ORDERED: METR500T1 PO (12:33)
--- NOTE | 2018-08-30 12:45 | NUR ---
CALLED DR. PEREZ'S OFC, ERP BUSINESS ANALYST STATED SHE WILL PAGE DR. PEREZ FOR ME. AWAITING FOR CALL BACK.
[2018-08-30] MEDS ORDERED: POTASSIUM CHLORIDE 10 MEQ TABER PO SCH (13:00)
[2018-08-30] MEDS ORDERED: MAG SULF 2000 MG/WATER PREMIX 50 ML IV SCH (13:00)
[2018-08-30] MEDS ORDERED: metroNIDAZOLE 500 MG TAB PO SCH (13:00)
--- NOTE | 2018-08-30 13:40 | NUR ---
ADMINISTERED MEDS PER MD ORDER FOR LOW MAG AND K, PATIENT TOLERATED WELL. PATIENT IS TALKING ON HIS PHONE, NO SIGNS OF DISTRESS NOTED. BED IN LOW POSITION AND CALL LIGHT WITHIN REACH.
--- NOTE | 2018-08-30 14:50 | NUR ---
LEFT A MESSAGE TO DR. PEREZ'S CELLPHONE REGARDING PT'S GI CLEARANCE FOR DISCHARGE. AWAITING FOR CALL BACK.
--- NOTE | 2018-08-30 15:35 | NUR ---
PATIENT IS TALKING ON HIS PHONE. NO SIGNS OF DISTRESS NOTED. SAFETY MEASURES IN PLACE.
--- NOTE | 2018-08-30 16:15 | NUR ---
DISCHARGE DOCUMENT HAS BEEN PREPARED. AWAITING FOR FAMILY TO ARRIVE. NO SIGNS OF DISTRESS NOTED. SAFETY MEASURES IN PLACE.
--- NOTE | 2018-08-30 16:55 | NUR ---
DISCHARGE INSTRUCTION PROVIDED TO PATIENT AND DAUGHTER AT BEDSIDE. EDUCATED PATIENT TO FOLLOW UP WITH MD AFTER DISCHARGE, GO TO THE NEAREST EMERGENCY IF EXPERIENCING SOB, PAIN, SWELLING, AND FEVER, DIET REGIMEN, MEDICATION REGIMEN, SIGNS AND SYMPTOMS, AND DISEASE MANAGEMENT. PATIENT AND DAUGHTER VERBALIZED UNDERSTANDING. PRESCRIPTION PROVIDED TO PATIENT. ANSWERED ALL PATIENT'S AND DAUGHTER'S QUESTIONS. D/C IV AND CANNULA INTACT, MINIMAL BLEEDING ON IV SITE. REMOVED ALL ID ARM BANDS. PATIENT IS DISCHARGE AT THIS TIME IN A STABLE CONDITION.
[2018-08-30] MEDS ORDERED: FERROUS SULFATE 325 MG TABEC PO SCH (17:00)
[2018-08-30] MEDS ORDERED: PANTOPRAZOLE 40 MG TABEC PO SCH (21:00)
[2018-08-31] MEDS ORDERED: SPIRONOLACTONE 50 MG TAB PO SCH (09:00)
[2018-08-31] MEDS ORDERED: PANTOPRAZOLE 40 MG TABEC PO SCH (09:00)
== END 2018-08-30 16:55 | disposition home or self-care (01) | DRG 280 ==
LOC: MED 20:44 → MMU 22:08 → UNDOADMIN 22:08 → MTU 22:08
PROVIDERS: ADMIT Internal Medicine Pulmonary Disease; ATTEND Internal Medicine Pulmonary Disease
PROC: 30233R1 Transfusion of Nonautologous Platelets into Peripheral Vein, Percutaneous Approach (ICD-10-PCS; 2018-08-27)
PROC: 30233N1 Transfusion of Nonautologous Red Blood Cells into Peripheral Vein, Percutaneous Approach (ICD-10-PCS; 2018-08-27)
PROC: 0DB68ZX Excision of Stomach, Via Natural or Artificial Opening Endoscopic, Diagnostic (ICD-10-PCS; principal; 2018-08-28 08:00)
PROC: 06L38CZ Occlusion of Esophageal Vein with Extraluminal Device, Via Natural or Artificial Opening Endoscopic (ICD-10-PCS; 2018-08-28 08:00)
DX: K70.30 Alcoholic cirrhosis of liver without ascites (principal); I85.11 Secondary esophageal varices with bleeding; K76.6 Portal hypertension; D64.9 Anemia, unspecified; E86.9 Volume depletion, unspecified; E11.9 Type 2 diabetes mellitus without complications; B96.81 Helicobacter pylori [H. pylori] as the cause of diseases classified elsewhere; K31.89 Other diseases of stomach and duodenum; Z88.0 Allergy status to penicillin; Z79.82 Long term (current) use of aspirin; Z79.84 Long term (current) use of oral hypoglycemic drugs; Z79.899 Other long term (current) drug therapy
CPT/HCPCS: 36415; 71045; 76700; 80048; 80053; 81001; 82140; 82150; 82948; 83036; 83690; 83735; 84100; 85025; 85610; 85730; 86677; 86886; 86900; 86901; 86920; 87081; 87086; 99285; C9113; J0690; J1815; J2250; J2354; J2405; J2916; J3010; J3430; J3475; J7030; J7042; J7060; P9016; P9035; Q0092